=== PATIENT | male | born 1975 | race African-American/Black ===

== ENCOUNTER 2020-06-11 02:27 | Emergency (ER) | payer MEDICAID, OTHER ==
[~2020-06-11] VITALS: Ht 172.7 cm; Wt 81.6 kg
[2020-06-11] MEDS ORDERED: EPINEPHrine HCL 1 MG/10 ML SYRG IV ONE (02:28)
[2020-06-11] MEDS ORDERED: SODIUM BICARBONATE 8.4% INJ 50ML SYRINGE IV ONE (02:28)
[2020-06-11 02:29] VITALS: BP 0/0
== END 2020-06-11 10:01 ==
LOC: EDBD 02:27 → ER 02:27
DX: S27.2XXA Traumatic hemopneumothorax, initial encounter (principal); S21.132A Puncture wound without foreign body of left front wall of thorax without penetration into thoracic cavity, initial encounter; I46.9 Cardiac arrest, cause unspecified; R41.82 Altered mental status, unspecified; R06.03 Acute respiratory distress; R06.89 Other abnormalities of breathing; W34.09XA Accidental discharge from other specified firearms, initial encounter; Y93.89 Activity, other specified; Y92.89 Other specified places as the place of occurrence of the external cause; Y99.8 Other external cause status
CPT/HCPCS: 31500; 92950; 99285; J0171